=== PATIENT | male | born 1975 | race Caucasian/White ===

== ENCOUNTER 2025-09-18 23:00 | Emergency (ER) | payer OTHER ==
[2025-09-19 00:01] LABS: CORONAVIRUS COVID-19 NAA NEGATIVE (NEGATIVE); INFLUENZA A NAA POSITIVE (NEGATIVE); INFLUENZA B NAA NEGATIVE (NEGATIVE); RESPIRATORY SYNCYTIAL VIR NAA NEGATIVE (NEGATIVE)
[2025-09-19] MEDS: Ketorolac 30 MG/ML SDV IM ONE (00:21)
== END 2025-09-19 00:26 | disposition home or self-care (01) ==
LOC: JP.ED 23:00
DX: J10.1 Influenza due to other identified influenza virus with other respiratory manifestations (principal); F17.200 Nicotine dependence, unspecified, uncomplicated
CPT/HCPCS: 87637; 96372; 99284; J1885; 99283